=== PATIENT | male | born 1970 | race Caucasian/White ===

== ENCOUNTER 2016-07-31 13:35 | Emergency (ER) | payer OTHER ==
[~2016-07-31] VITALS: Ht 188 cm; Wt 114.3 kg
[2016-07-31] MEDS ORDERED: CEFTRIAXONE IM 1 GM VIAL. IM ONE (14:15)
[2016-07-31 14:33] LABS: BASO # 0.1 x10^3/uL (0.0-0.2); BASO % 0 % (0-3); EOS % 1 % (0-3); HEMOGLOBIN 13.5 g/dL (13.0-17.5); LYMPH # 1.2 x10^3/uL (1.0-4.8); LYMPH % 5 % (24-48); MEAN CORPUSCULAR HEMOGLOBIN 31 pg (25-35); MEAN CORPUSCULAR HGB CONC 34 g/dL (31-37); MEAN CORPUSCULAR VOLUME 92 fL (79-100); MONO % 5 % (0-9); NEUT % 90 % (31-73); PLATELET COUNT 244 x10^3/uL (140-400); RED BLOOD COUNT 4.35 x10^6/uL (4.30-5.70); WHITE BLOOD COUNT 25.3 x10^3/uL (4.0-11.0)
--- NOTE | 2016-07-31 14:52 | RAD ---
Pelvis, single view, 07/31/2016: History: Foreign body in scrotum An AP view of the pelvis was obtained to include the perineal and scrotal regions. No bony abnormality is detected. The hip joints are unremarkable. Prostatic calcifications are noted. There are 2 linear radiopaque foreign bodies compatible with broken needle fragments projected over the lower scrotum just left of midline. One of these measures 8 mm in length while the other measures 10 mm in length. IMPRESSION: Small radiopaque foreign bodies project over the scrotum as described above.
[2016-07-31 15:16] VITALS: BP 123/70
[2016-07-31 15:20] LABS: PLT ESTIMATE ADEQUATE (ADEQUATE)
[2016-07-31] MEDS ORDERED: CEFT1VIA6 IM (15:31)
--- NOTE | 2016-07-31 15:32 | PHYS DOC ---
Past Medical History Past Medical History: High Cholesterol, Hypertension Past Surgical History: Other Additional Past Surgical Histo: vericose vein left leg Alcohol Use: None Drug Use: None Adult General Chief Complaint Chief Complaint: FOREIGN BODY HPI HPI Patient is a 46 year old male who presents with scrotal foreign body. Patient states about 6 weeks ago he was trying to "pop a pimple" on his scrotum using a small needle. He became startled & part of the needle broke off inside his scrotum. He states 2 weeks ago he took doxycycline for possible infection. Today had XR showing metallic foreign body, has increasing erythema & swelling to the scrotum, & was referred for further evaluation. Denies fevers/chills, nausea/vomiting, abdominal pain, dysuria/hematuria. [facility] is an [facility]. Review of Systems Review of Systems Constitutional: Denies fever or chills HENT: Denies nasal congestion or sore throat Respiratory: Denies cough or shortness of breath Cardiovascular: Denies chest pain GI: Denies abdominal pain, nausea, vomiting : Denies dysuria or hematuria. reports left scrotal foreign body with pain, swelling, erythema. Musculoskeletal: Denies back pain or joint pain Integument: Denies rash or skin lesions Neurologic: Denies headache, focal weakness or sensory changes Current Medications Current Medications Current Medications Medications (Trade) Dose Ordered Sig/Juan Start Time Stop Time Status Last Admin Dose Admin Ceftriaxone Sodium (Rocephin Im) 1 gm 1X ONCE 07/31/16 14:15 07/31/16 14:16 DC 07/31/16 14:22 1 GM Allergies Allergies Allergies Coded Allergies Type Severity Reaction Last Updated Verified No Known Drug Allergies 07/31/16 No Physical Exam Physical Exam Constitutional: obese, no acute distress, non-toxic appearance. HENT: Normocephalic, atraumatic, bilateral external ears normal, oropharynx moist, nose normal. Eyes: conjunctiva normal, no discharge. Cardiovascular: RRR, no murmurs, no edema. Lungs & Thorax: LCTAB, no wheezing, no respiratory distress. Abdomen: soft, nontender, nondistended. : left scrotum enlarged, swollen, moderate diffuse tenderness, no obvious entrance wound, no wound or drainage, mild generalized erythema, no masses. Skin: Warm, dry, no rash. Back: No tenderness. Extremities: No deformity. Neurologic: Alert and oriented X 3, no focal deficits noted. Psychologic: Affect normal, judgement normal, mood normal. Current Patient Data Vital Signs Vital Signs Date Time Temp Pulse Resp B/P Pulse Ox O2 Delivery O2 Flow Rate FiO2 07/31/16 15:16 81 18 123/70 97 Room Air 07/31/16 13:37 99.7 99.7 Lab Values Laboratory Tests Test 07/31/16 14:20 White Blood Count 25.3x10^3/uL (4.0-11.0) H Red Blood Count 4.35x10^6/uL (4.30-5.70) Hemoglobin 13.5g/dL (13.0-17.5) Hematocrit 40.0% (39.0-53.0) Mean Corpuscular Volume 92fL (79-100) Mean Corpuscular Hemoglobin 31pg (25-35) Mean Corpuscular Hemoglobin Concent 34g/dL (31-37) Red Cell Distribution Width 13.0% (11.5-14.5) Platelet Count 244x10^3/uL (140-400) Neutrophils (%) (Auto) 90% (31-73) H Lymphocytes (%) (Auto) 5% (24-48) L Monocytes (%) (Auto) 5% (0-9) Eosinophils (%) (Auto) 1% (0-3) Basophils (%) (Auto) 0% (0-3) Neutrophils # (Auto) 22.7x10^3uL (1.8-7.7) H Lymphocytes # (Auto) 1.2x10^3/uL (1.0-4.8) Monocytes # (Auto) 1.2x10^3/uL (0.0-1.1) H Eosinophils # (Auto) 0.1x10^3/uL (0.0-0.7) Basophils # (Auto) 0.1x10^3/uL (0.0-0.2) Segmented Neutrophils % 85% (35-66) H Band Neutrophils % 9% (0-9) Lymphocytes % 3% (24-48) L Monocytes % 3% (0-10) Platelet Estimate Adequate (ADEQUATE) Laboratory Tests 07/31/16 14:20 EKG EKG [] Radiology/Procedures Radiology/Procedures PROCEDURE: PELVIS Pelvis, single view, 07/31/2016: History: Foreign body in scrotum An AP view of the pelvis was obtained to include the perineal and scrotal regions. No bony abnormality is detected. The hip joints are unremarkable. Prostatic calcifications are noted. There are 2 linear radiopaque foreign bodies compatible with broken needle fragments projected over the lower scrotum just left of midline. One of these measures 8 mm in length while the other measures 10 mm in length. IMPRESSION: Small radiopaque foreign bodies project over the scrotum as described above. DICTATED and SIGNED BY: THOMAS MARCELINO MD DATE: 07/31/16 1448[] Course & Med Decision Making Course & Med Decision Making Pertinent Labs and Imaging studies reviewed. (See chart for details) Patient presents with scrotal foreign body now with increased pain, swelling, erythema. Discussed with Dr. Saul who recommends plain film as well as CBC. IMaging confirms presence of metallic foreign body. WBC elevated at 25,000. Afebrile, HR mildly elevated upon arrival but 81 on recheck. Does not meet criteria for sepsis. Dr. Saul recommends discharge back to [facility], should be placed in [facility] for inpatient stay, administer rocephin 1 gram q12 hours ( first dose given in ED), staff to call to schedule oupatient surgery for scrotal exploration in 24-72 hours. Guards with patient agree that this can be arranged. Patient agrees with plan except he states [facility]. Recommend return to the emergency department for high fever, severe pain, uncontrolled vomiting, increased swelling or erythema, decreased urine output or inability to void, otherwise worsening condition. Discharged in stable condition. [] Dragon Disclaimer Dragon Disclaimer This electronic medical record was generated, in whole or in part, using a voice recognition dictation system. Departure Departure Impression: Primary Impression: Foreign body in scrotum Disposition: 01 HOME, SELF-CARE Condition: STABLE Referrals: LOUISE SAUL DO Additional Instructions: You were seen in the emergency department today for needle in your scrotum. The urologist recommends that you should stay in the [facility] when [facility] to the [facility]. He recommends Rocephin 1 g every 12 hours. Staff there should contact Dr. Saul's office to schedule surgery within 44-72 hours. Return to the emergency department for high fever, uncontrolled pain, worsening redness or swelling, any otherwise worsening condition. Scripts Ceftriaxone Sodium (Ceftriaxone)1 Gm Vial1 Gm IM Q12HR #8 VIAL Prov:JOSE VILLALBA MD 07/31/16 JOSE VILLALBA MD Jul 31, 2016 15:32
== END 2016-07-31 15:46 | disposition home or self-care (01) ==
LOC: EEVIPCON 13:35 → ER 13:35
DX: T19.8XXA Foreign body in other parts of genitourinary tract, initial encounter (principal); E78.00 Pure hypercholesterolemia, unspecified; I10 Essential (primary) hypertension; E66.9 Obesity, unspecified; Z68.32 Body mass index [BMI] 32.0-32.9, adult; X58.XXXA Exposure to other specified factors, initial encounter; Y93.89 Activity, other specified; Y92.89 Other specified places as the place of occurrence of the external cause; Y99.8 Other external cause status
CPT/HCPCS: 36415; 72170; 85007; 85027; 96372; 99285; J0696